=== PATIENT | male | born 1955 | race Two or more races ===

== ENCOUNTER 2024-08-16 12:53 | Inpatient (IN) | payer OTHER ==
[~2024-08-16] VITALS: Ht 167.6 cm; Wt 98.0 kg
[2024-08-16] MEDS ORDERED: LIPITOR40 MG PO (12:58)
[2024-08-16] MEDS ORDERED: LIPOFEN150 MG PO (12:58)
[2024-08-16] MEDS ORDERED: METFORMIN HCL500 M3 (12:58)
[2024-08-16] MEDS ORDERED: COZAAR25 MG PO (12:58)
[2024-08-23] MEDS ORDERED: SUGAMMADEX SODIUM 200 MG/2 ML VIAL IV ONE (10:29)
[2024-08-23] MEDS ORDERED: METRONIDAZOLE/SODIUM CHLORIDE 500 MG/100 ML PIGGYBACK IV ONE ×2 (11:30→16:12)
[2024-08-23] MEDS ORDERED: CEFTRIAXONE SODIUM 2,000 MG VIAL IV ONE (11:30)
[2024-08-23] MEDS ORDERED: OxyCODONE HCL 5 MG TABLET (ROXICODONE) PO PRN (12:00)
[2024-08-23] MEDS ORDERED: ONDANSETRON HCL 2 MG/ML VIAL IV PRN (12:00)
[2024-08-23] MEDS ORDERED: 0.9 % SODIUM CHLORIDE 1,000 ML IV SCH (12:00)
[2024-08-23] MEDS ORDERED: DEXTROSE 50 % IN WATER 0.5 G/ML DISP.SYRIN IV PRN (12:00)
[2024-08-23] MEDS ORDERED: MORPHINE SULFATE 4 MG/ML CARTRIDGE IV PRN (12:00)
[2024-08-23] MEDS ORDERED: MORPHINE SULFATE 4 MG/ML VIAL IV ONE ×2 (12:10→12:40)
[2024-08-23 12:37] LABS: HEMATOCRIT 40.1 % (39.0-48.0); HEMOGLOBIN 13.7 g/dL (13-16.00); MEAN CELL VOLUME 96.2 fL (80.0-100.00); MEAN CORPUSCULAR HEMOGLOBIN 32.9 pg (27.00-32.0); MEAN CORPUSCULAR HGB CONC 34.2 g/dl (32.0-36.0); PLATELET COUNT 219 K/uL (150-450); RED BLOOD COUNT 4.17 M/uL (4.00-6.00); RED CELL DISTRIBUTION WIDTH 12.7 % (11.5-14.5)
[2024-08-23] MEDS ORDERED: HYOSCYAMINE SULFATE 0.125 MG TAB.SUBL SL SCH (13:00)
[2024-08-23 13:13] LABS: ALBUMIN 3.5 gm/dL (3.4-5.0); CALCIUM 8.6 mg/dL (8.5-10.1); CREATININE SERUM 1.41 mg/dL (0.70-1.30); GFR 50.13; MAGNESIUM 1.7 mg/dL (1.8-2.4); PHOSPHOROUS 3.2 mg/dL (2.5-4.9); POTASSIUM 4.75 mEq/L (3.5-5.1)
[2024-08-23] MEDS ORDERED: ACETAMINOPHEN 500 MG GEL..CAP PO SCH (14:00)
[2024-08-23] MEDS ORDERED: GABAPENTIN 300 MG CAPSULE PO ONE (16:12)
[2024-08-23] MEDS ORDERED: HYOSCYAMINE SULFATE 0.125 MG TAB.SUBL ONE (16:12)
[2024-08-23] MEDS ORDERED: ONDANSETRON HCL 2 MG/ML VIAL ONE (16:28)
[2024-08-23 16:50] VITALS: BP 129/74; O2SAT 94
[2024-08-23] MEDS ORDERED: POLYETHYLENE GLYCOL 3350 17 GM BLIST.PACK PO SCH (17:00)
[2024-08-23] MEDS ORDERED: METRONIDAZOLE/SODIUM CHLORIDE 500 MG/100 ML PIGGYBACK IV SCH (17:00)
[2024-08-23] MEDS ORDERED: GABAPENTIN 300 MG CAPSULE PO SCH (17:00)
[2024-08-23] MEDS ORDERED: DEXTROSE 50 % IN WATER 0.5 G/ML VIAL IV PRN (18:30)
[2024-08-23] MEDS ORDERED: hydrALAZINE HCL 20 MG VIAL IV PRN (18:30)
[2024-08-23] MEDS ORDERED: INSULIN LISPRO 1,000 UNIT/10 ML UNITS SUBCUTANEO PRN (18:30)
[2024-08-23] MEDS ORDERED: CELECOXIB 200 MG CAPSULE PO SCH (21:00)
[2024-08-23] MEDS ORDERED: FAMOTIDINE/PF 20 MG/2 ML VIAL IV PUSH SCH (21:00)
[2024-08-24] VITALS: BP 134/75; O2SAT 98
[2024-08-24 06:55] LABS: HEMATOCRIT 29.9 % (39.0-48.0); HEMOGLOBIN 10.5 g/dL (13-16.00); MEAN CELL VOLUME 95.3 fL (80.0-100.00); MEAN CORPUSCULAR HEMOGLOBIN 33.4 pg (27.00-32.0); PLATELET COUNT 212 K/uL (150-450); RED BLOOD COUNT 3.14 M/uL (4.00-6.00); RED CELL DISTRIBUTION WIDTH 12.6 % (11.5-14.5)
[2024-08-24 07:41] LABS: ALBUMIN 2.8 gm/dL (3.4-5.0); CALCIUM 8.1 mg/dL (8.5-10.1); CREATININE SERUM 1.3 mg/dL (0.70-1.30); GFR 55.06; MAGNESIUM 1.9 mg/dL (1.8-2.4); PHOSPHOROUS 3.3 mg/dL (2.5-4.9); POTASSIUM 5.08 mEq/L (3.5-5.1)
[2024-08-24] MEDS ORDERED: AMINOCAPROIC ACID 250 MG/ML VIAL IV STA (07:43)
[2024-08-24 08:00] VITALS: BP 99/55; O2SAT 99
[2024-08-24] MEDS ORDERED: LOSARTAN POTASSIUM 25 MG TABLET PO SCH (09:00)
[2024-08-24] MEDS ORDERED: AMINOCAPROIC ACID 20 MG/ML ML IV SCH (09:00)
[2024-08-24 13:00] VITALS: BP 93/55; O2SAT 100
[2024-08-24 14:55] LABS: HEMATOCRIT 25.9 % (39.0-48.0); MEAN CELL VOLUME 95.1 fL (80.0-100.00); MEAN CORPUSCULAR HEMOGLOBIN 32.9 pg (27.00-32.0); MEAN CORPUSCULAR HGB CONC 34.6 g/dl (32.0-36.0); PLATELET COUNT 187 K/uL (150-450); RED BLOOD COUNT 2.72 M/uL (4.00-6.00); RED CELL DISTRIBUTION WIDTH 12.7 % (11.5-14.5)
[2024-08-24 16:22] VITALS: BP 104/62; O2SAT 100
[2024-08-24] MEDS ORDERED: FUROsemide 20 MG/2 ML VIAL IV SCH (16:30)
[2024-08-24] MEDS ORDERED: ENOXAPARIN SODIUM 40 MG/0.4 ML SYRINGE SUBCUTANEO SCH (17:00)
[2024-08-24] MEDS ORDERED: ATORVASTATIN CALCIUM 40 MG TABLET PO SCH (17:00)
[2024-08-25 00:13] VITALS: BP 124/67; O2SAT 100
[2024-08-25] MEDS ORDERED: PANTOPRAZOLE SODIUM 40 MG/VIAL VIAL IV PRN (02:30)
[2024-08-25] MEDS ORDERED: PANTOPRAZOLE SODIUM 80 MG in 0.9 % SODIUM CHLORIDE 100 ML IV SCH (06:30)
[2024-08-25 08:00] VITALS: BP 148/84; O2SAT 95
[2024-08-25] MEDS ORDERED: DIPHENHYDRAMINE HCL 50 MG/ML VIAL 1ML IV ONE (08:30)
[2024-08-25] MEDS ORDERED: fentaNYL CITRATE 50 MCG/ML AMPUL IV ONE (08:30)
[2024-08-25] MEDS ORDERED: MIDAZOLAM HCL 2 MG/2 ML VIAL IV ONE (08:30)
[2024-08-25] MEDS ORDERED: ENOXAPARIN SODIUM 40 MG/0.4 ML SYRINGE SUBCUTANEO SCH (09:00)
[2024-08-25] MEDS ORDERED: SOD FERRIC GLUC COMPLX/SUCROSE 62.5 MG in 0.9 % SODIUM CHLORIDE 50 ML IV SCH (09:00)
[2024-08-25 11:00] LABS: HEMATOCRIT 31.6 % (39.0-48.0); MEAN CORPUSCULAR HGB CONC 35.2 g/dl (32.0-36.0); PLATELET COUNT 170 K/uL (150-450); RED BLOOD COUNT 3.37 M/uL (4.00-6.00); RED CELL DISTRIBUTION WIDTH 13.2 % (11.5-14.5)
[2024-08-25 11:09] LABS: COL EPI 101 SECONDS (82-175)
[2024-08-25 11:12] LABS: HEMOGLOBIN 11.1 g/dL (13-16.00); MEAN CELL VOLUME 93.8 fL (80.0-100.00); MEAN CORPUSCULAR HEMOGLOBIN 32.9 pg (27.00-32.0)
[2024-08-25 11:14] LABS: CREATININE SERUM 1.11 mg/dL (0.70-1.30); GFR 66.07; POTASSIUM 4.39 mEq/L (3.5-5.1)
[2024-08-25 11:19] LABS: PHOSPHOROUS 1.3 mg/dL (2.5-4.9)
[2024-08-25 12:14] LABS: INR 1.05; PARTIAL THROMBOPLASTIN TIME 24.2 SECONDS (22.0-34.0); PROTHROMBIN TIME 11.4 SECONDS (9.0-11.5)
[2024-08-25] MEDS ORDERED: POTASSIUM PHOS,M-BASIC-D-BASIC 3 MM/ML VIAL IV ONE (14:00)
[2024-08-25 16:00] VITALS: BP 143/74; O2SAT 99
[2024-08-25 17:10] LABS: HEMATOCRIT 34.7 % (39.0-48.0); MEAN CELL VOLUME 93.3 fL (80.0-100.00); MEAN CORPUSCULAR HEMOGLOBIN 32.2 pg (27.00-32.0); MEAN CORPUSCULAR HGB CONC 34.5 g/dl (32.0-36.0); PLATELET COUNT 171 K/uL (150-450); RED BLOOD COUNT 3.71 M/uL (4.00-6.00); RED CELL DISTRIBUTION WIDTH 13.5 % (11.5-14.5)
[2024-08-26 00:52] VITALS: BP 145/84; O2SAT 100
[2024-08-26 08:04] VITALS: BP 127/70; O2SAT 95
[2024-08-26 09:24] LABS: HEMATOCRIT 36.4 % (39.0-48.0); HEMOGLOBIN 12.5 g/dL (13-16.00); MEAN CELL VOLUME 94.2 fL (80.0-100.00); MEAN CORPUSCULAR HEMOGLOBIN 32.5 pg (27.00-32.0); MEAN CORPUSCULAR HGB CONC 34.5 g/dl (32.0-36.0); PLATELET COUNT 199 K/uL (150-450); RED BLOOD COUNT 3.86 M/uL (4.00-6.00); RED CELL DISTRIBUTION WIDTH 13.4 % (11.5-14.5)
[2024-08-26 10:48] LABS: CALCIUM 9.2 mg/dL (8.5-10.1); CREATININE SERUM 1.26 mg/dL (0.70-1.30); GFR 57.08; MAGNESIUM 2.1 mg/dL (1.8-2.4); PHOSPHOROUS 2.3 mg/dL (2.5-4.9); POTASSIUM 4.64 mEq/L (3.5-5.1)
[2024-08-26 16:00] VITALS: BP 116/71; O2SAT 97
[2024-08-27 00:40] VITALS: BP 127/73; O2SAT 98
[2024-08-27 08:00] VITALS: BP 129/83; O2SAT 99
[2024-08-27] MEDS ORDERED: PEPCID AC20 MG PO (08:05)
[2024-08-27] MEDS ORDERED: HYOSCYAMINE0.125 M1 SL (08:05)
[2024-08-27] MEDS ORDERED: TRAM1TAB98 PO (08:06)
== END 2024-08-27 10:08 | disposition home or self-care (01) | DRG 330 ==
LOC: O/R 08-23 07:23 → SURH 08-23 10:45
PROVIDERS: Internal Medicine Geriatric Medicine; ADMIT Surgery; ATTEND Surgery
PROC: 07BB4ZZ Excision of Mesenteric Lymphatic, Percutaneous Endoscopic Approach (ICD-10-PCS; 2024-08-23)
PROC: 0DTF4ZZ Resection of Right Large Intestine, Percutaneous Endoscopic Approach (ICD-10-PCS; principal; 2024-08-23 10:45)
PROC: 30233N1 Transfusion of Nonautologous Red Blood Cells into Peripheral Vein, Percutaneous Approach (ICD-10-PCS; 2024-08-24)
PROC: 3E0H8GC Introduction of Other Therapeutic Substance into Lower GI, Via Natural or Artificial Opening Endoscopic (ICD-10-PCS; 2024-08-25)
PROC: 0W3P8ZZ Control Bleeding in Gastrointestinal Tract, Via Natural or Artificial Opening Endoscopic (ICD-10-PCS; 2024-08-25)
DX: D12.0 Benign neoplasm of cecum (principal); D62 Acute posthemorrhagic anemia; D37.4 Neoplasm of uncertain behavior of colon